=== PATIENT | female | born 1990 | race Caucasian/White ===

== ENCOUNTER 2019-02-16 11:54 | Inpatient (IN) | payer OTHER ==
[~2019-02-16] VITALS: Ht 162.6 cm; Wt 70.8 kg
[2019-02-24] MEDS ORDERED: TERCONAZOLE20 GM VAG (22:39)
[2019-02-24] MEDS ORDERED: ZANTAC300 MG PO (22:40)
== END 2019-02-27 10:46 | disposition home or self-care (01) | DRG 768 ==
LOC: OB/GYN 11:54 → LDR 02-24 21:47 → OB/GYN 02-24 21:47
PROVIDERS: ADMIT Specialist
PROC: 4A1HXCZ Monitoring of Products of Conception, Cardiac Rate, External Approach (ICD-10-PCS; 2019-02-24)
PROC: 10E0XZZ Delivery of Products of Conception, External Approach (ICD-10-PCS; principal; 2019-02-25)
PROC: 0DQR0ZZ Repair Anal Sphincter, Open Approach (ICD-10-PCS; 2019-02-25)
PROC: 4A033R1 Measurement of Arterial Saturation, Peripheral, Percutaneous Approach (ICD-10-PCS; 2019-02-25)
DX: O70.21 Third degree perineal laceration during delivery, IIIa (principal); O72.1 Other immediate postpartum hemorrhage; D62 Acute posthemorrhagic anemia; O99.013 Anemia complicating pregnancy, third trimester; Z37.0 Single live birth; Z3A.39 39 weeks gestation of pregnancy